=== PATIENT | female | born 1960 | race Caucasian/White ===

== ENCOUNTER 2021-06-01 09:37 | Inpatient (IN) | payer OTHER ==
[~2021-06-01] VITALS: Ht 165.1 cm; Wt 45.8 kg
[2021-06-01] MEDS ORDERED: MORPHINE SULFATE INJ 4 MG/ML DISP.SYRIN ONE (09:59)
[2021-06-01] MEDS ORDERED: MORPHINE SULFATE INJ 2 MG/ML DISP.SYRIN IV ONE (10:00)
[2021-06-01] MEDS ORDERED: MELO15TA13 PO (10:01)
[2021-06-01] MEDS ORDERED: ALPR0.5T PO (10:01)
[2021-06-01] MEDS ORDERED: ARIP2TAB3 PO (10:01)
[2021-06-01] MEDS ORDERED: MAGN84TA PO (10:01)
[2021-06-01] MEDS ORDERED: CITA40TA22 PO (10:01)
[2021-06-01] MEDS ORDERED: TOPI200T PO (10:01)
[2021-06-01] MEDS ORDERED: LEVE500T9 PO (10:01)
[2021-06-01] MEDS ORDERED: ASPI-1169 PO (10:01)
--- NOTE | 2021-06-01 10:06 | NUR ---
RADIOLOGY CALLED FOR CT CHEST AND ABDOMEN.
--- NOTE | 2021-06-01 10:12 | NUR ---
60 years old female presents to er with right shoulder pain/arm swelling, poor historian, rib ecchymotic.
[2021-06-01] MEDS ORDERED: CT SWABBABLE VALVE TRANS SET 1 EA INFUS.SET MC ONE (10:14)
[2021-06-01] MEDS ORDERED: IOHEXOL-300 100 ML VIAL IV ONE (10:14)
[2021-06-01] MEDS ORDERED: OLANZAPINE 10 MG VIAL IM ONE ×2 (10:14→10:30)
[2021-06-01] MEDS ORDERED: IV NS 0.9% 250 ML IV ONE (10:14)
[2021-06-01 10:20] LABS: BASOPHILS % (AUTO) 0.5 % (0.0-2.0); HEMATOCRIT 35 % (33-45); HEMOGLOBIN 11.8 g/dL (11.5-14.8); LYMPHOCYTES % (AUTO) 27.6 % (20.0-44.0); MEAN CORPUSCULAR HGB CONC 33 g/dl (31.0-36.0); MEAN CORPUSCULAR VOLUME 98 fL (82-100); MONOCYTES # (AUTO) 0.8 K/uL (0.1-1.30); MONOCYTES % (AUTO) 11.6 % (2.0-12.0); NEUTROPHILS # (AUTO) 4.2 K/uL (1.8-8.9); NEUTROPHILS % (AUTO) 57.3 % (43.0-81.0); PLATELET COUNT (AUTO) 315 K/uL (150-450); RED BLOOD CELL COUNT(AUTO) 3.63 MIL/uL (4.0-5.2); WHITE BLOOD COUNT (AUTO) 7.3 K/uL (4.3-11.0)
[2021-06-01 11:09] LABS: ALANINE AMINOTRANSFERASE 20 U/L (12-78); ALBUMIN 3.2 g/dL (3.4-5.0); ALKALINE PHOSPHATASE 100 U/L (46-116); ASPARTATE AMINOTRANSFERASE 18 U/L (15-37); BILIRUBIN,DIRECT 0.2 mg/dL (0.0-0.2); BILIRUBIN,TOTAL 0.8 mg/dL (0.2-1.0); CALCIUM, SERUM 10.5 mg/dL (8.5-10.1); CARBON DIOXIDE 25 mmol/L (21-32); CHLORIDE 107 mmol/L (98-107); CREATININE 0.8 mg/dL (0.6-1.3); GLUCOSE 105 mg/dL (74-106); SODIUM SERUM 141 mmol/L (136-145); TOTAL PROTEIN, SERUM 6.7 g/dL (6.4-8.2)
--- NOTE | 2021-06-01 12:11 | NUR ---
patient resting no acute distress, vital stable, safety maintained.
[2021-06-01 12:44] LABS: BILIRUBIN,URINE NEGATIVE (NEGATIVE); LEUKOCYTE ESTERASE ,URINE SMALL (NEGATIVE); NITRITE, URINE NEGATIVE (NEGATIVE); PH,URINE 7.5 (5.0-8.0); PROTEIN,URINE NEGATIVE (NEGATIVE); UGLUCOSE NEGATIVE (NEGATIVE); UROBILINOGEN,URINE 0.2 EU/dL (0.2)
[2021-06-01 12:52] LABS: COLOR,URINE DARK YELLOW (YELLOW)
[2021-06-01 13:20] LABS: BACTERIA,URINE Few /HPF (None Seen); SQUAMOUS EPITHELIAL CELL,UR Few /HPF (None Seen); URINE AMORPHOUS PHOSPHATES Moderate /HPF (None Seen)
[2021-06-01 14:20] LABS: UREA NITROGEN, BLOOD 31 mg/dL (7-18)
[2021-06-01] MEDS ORDERED: Z GUARD REMEDY 2 OZ OINT TP PRN (14:30)
[2021-06-01] MEDS ORDERED: MAG HYDROX/AL HYDROX/SIMETH 30 ML UDC PO PRN (14:30)
[2021-06-01] MEDS ORDERED: MAGNESIUM HYDROXIDE 30 ML UDC PO PRN (14:30)
[2021-06-01] MEDS ORDERED: ACETAMINOPHEN 325 MG TABLET PO PRN (14:30)
[2021-06-01] MEDS ORDERED: ONDANSETRON HCL/PF 4 MG/2 ML VIAL IVP PRN (14:30)
--- NOTE | 2021-06-01 14:40 | NUR ---
RN ADMITTING NOTES PT TRANSPORTED TO UNIT BY [facility] AT THIS TIME. RECEIVED REPORT FROM PAO YANG @ ER. PT GARBLES AND IS AUTISTIC. NO SOB NOTED, NO S/O OF ANY ACUTE DISTRESS NOTED, NO S/O PAIN OR FACIAL GRIMACE AT THIS TIME. RIGHT LATERAL SIDE BRUISING. SKIN IS WARM TO TOUCH, ACTIVE BOWEL SOUNDS AUSCULTATED THROUGHOUT, LUNGS ARE CLEAR TO AUSCULTATION. PULSES PRESENT BILATERALLY, CAPILLARY REFILL <3SECONDS. IV ACCESS NOTED IN LAC G#20, INTACT, PATENT AND FLUSHING WELL. BELONGINGS ACCOUNTED FOR AND SIGNED BY TWO NURSES, DUE TO PATIENT UNABLE TO SIGN. ASPIRATION AND SAFETY PRECAUTIONS IN PLACE AND MAINTAINED AT ALL TIMES. BED IN LOWEST LOCKED POSITION, HOB ELEVATED, SIDE RAILS UP X2, CALL LIGHT AND TABLE WITHIN REACH. WILL CONTINUE TO MONITOR
[2021-06-01] MEDS ORDERED: MAGNESIUM PO SCH (17:00)
[2021-06-01] MEDS: IV NS 0.9% 1,000 ML IV PRN (17:54)
--- NOTE | 2021-06-01 18:25 | NUR ---
ETHAN ([phone]), PT'S LEGAL CONSERVATORSHIP AND BILL ([phone]), PT'S BROTHER BOTH ELECTED FOR DNR, NIC CHARGE NURSE AND DR CHEATHAM MADE AWARE. RECEIVED ORDERS FROM DR CHEATHAM TO INPUT CODE STATUS TO DNR. OLIVER CHARGE NURSE AND NURSE CO-SIGN STATUS. WILL CONTINUE WITH PLAN OF CARE
--- NOTE | 2021-06-01 19:03 | NUR ---
RN CLOSING NOTES RECEIVED PT AWAKE IN BED, PT REMAINED STABLE THROUGHOUT SHIFT. ALL PATIENT CARE, NEEDS AND MEDICATIONS ADMINISTERED ANTICIPATED PER ORDER. KEPT CLEAN AND DRY. SAFETY PRECAUTIONS IN PLACE AND MAINTAINED AT ALL TIMES. BED IN LOWEST LOCKED POSITION, HOB ELEVATED, SIDE RAILS UP X2, CALL LIGHT AND TABLE WITHIN REACH. WILL ENDORSE TO LABORATORY MECHANIC HELPER NURSE FOR TRISH
[2021-06-01] MEDS: ARIPIPRAZOLE 2 MG TABLET PO SCH (19:10)
[2021-06-01 19:58] LABS: CREATINE KINASE, TOTAL 209 U/L (26-192)
[2021-06-01 20:00] VITALS: BP 125/72
--- NOTE | 2021-06-01 20:10 | NUR ---
MS RN Opening Notes Patient was last seen awake resting in bed. Patient's on room air with no respiratory distress needed. Patient has an IV access on on her LAC gauge #20 which is intact, patent, and flushing well. Patient's in no acute distress at this time. Safety measures in place: Bed locked, bed alarm on, side rails up x3, and call light within reach. Will continue to monitor the patient.
[2021-06-01] MEDS ORDERED: ALPRAZOLAM 0.5 MG TABLET PO PRN (21:00)
[2021-06-01] MEDS: TOPIRAMATE 100 MG TABLET PO SCH (21:35)
[2021-06-01] MEDS: LEVETIRACETAM (250 MG) 250 MG TABLET PO SCH (21:35)
[2021-06-01] MEDS: CITALOPRAM HYDROBROMIDE 20 MG TABLET PO SCH (21:38)
[2021-06-02 06:19] LABS: BASOPHILS % (AUTO) 0.4 % (0.0-2.0); EOSINOPHILS % (AUTO) 2.8 % (0.0-6.0); HEMATOCRIT 37 % (33-45); HEMOGLOBIN 12.1 g/dL (11.5-14.8); LYMPHOCYTES # (AUTO) 1.4 K/uL (0.8-4.8); LYMPHOCYTES % (AUTO) 16.5 % (20.0-44.0); MEAN CORPUSCULAR HGB CONC 33 g/dl (31.0-36.0); MEAN CORPUSCULAR VOLUME 99 fL (82-100); MONOCYTES # (AUTO) 0.7 K/uL (0.1-1.30); MONOCYTES % (AUTO) 8.2 % (2.0-12.0); NEUTROPHILS # (AUTO) 5.9 K/uL (1.8-8.9); NEUTROPHILS % (AUTO) 72.1 % (43.0-81.0); PLATELET COUNT (AUTO) 280 K/uL (150-450); WHITE BLOOD COUNT (AUTO) 8.2 K/uL (4.3-11.0)
[2021-06-02 07:22] LABS: MAGNESIUM 1.3 mg/dL (1.8-2.4); PHOSPHORUS 2.3 mg/dL (2.5-4.9)
[2021-06-02 08:00] VITALS: BP 122/79
--- NOTE | 2021-06-02 08:45 | NUR ---
m/s seafood farmer: md visit seen by dr. serra at this time with no new order. per md pt doesn't need ortho consult.
[2021-06-02] MEDS: ASPIRIN 81 MG TAB.CHEW PO SCH (08:53)
[2021-06-02] MEDS: MELOXICAM 7.5 MG TABLET PO SCH (08:53)
[2021-06-02] MEDS: LEVETIRACETAM (250 MG) 250 MG TABLET PO SCH ×2 (08:53→21:23)
[2021-06-02] MEDS: TOPIRAMATE 100 MG TABLET PO SCH ×2 (08:53→21:23)
[2021-06-02] MEDS: ARIPIPRAZOLE 2 MG TABLET PO SCH (08:53)
[2021-06-02] MEDS ORDERED: Magnesium 1GM/D5W 100ML PREMIX 100 ML IV SCH ×2 (09:00→15:00)
--- NOTE | 2021-06-02 09:00 | NUR ---
noted with iv meds ordered, pharmacist notified, spoke to emmie and informed him that pt needs a line. pt has no iv at this time due to hard stick. pt for midline insertion, awaiting for picc line nurse.
--- NOTE | 2021-06-02 09:15 | NUR ---
SS consult received over the weekend. SW will follow up at a later time.
--- NOTE | 2021-06-02 09:35 | NUR ---
WOUND CARE CONSULT: PT PRESENTS WITH AREAS OF DISCOLORATION TO BODY, PRESENT ON ADMISSION. RECOMMENDATIONS MADE FOR SKIN PROTECTION. DISCUSSED WITH NURSING STAFF. IN AGREEMENT WITH PLAN OF CARE. Addendum: 06/02/21 at 0937 by ERAN RICH WNDNU PT IS ON [facility] AIR[facility] BED.
--- NOTE | 2021-06-02 10:20 | NUR ---
m/s coil taper: notes PICC RN WESLEY INSERTED THE MIDLINE TO LEFT UPPER ARM, GAUZE #18, MADISYN. WELL. YARY HAND MITTENS IN PLACE, RELEASED AND REPOSITIONED FOR CIRCULATION NEEDED. REALITY ORIENTATION PROVIDED PRN. WILL CONTINUE TO MONITOR.
[2021-06-02] MEDS: POTASSIUM PHOSPHATE MM 7.5 MMOL in IV NS 0.9% 100 ML IV SCH ×2 (10:32→13:37)
--- NOTE | 2021-06-02 10:40 | NUR ---
o.t. eval done and right sling applied at this time. will continue to monitor.
[2021-06-02] MEDS: APIXABAN 5 MG TABLET PO SCH ×2 (10:45→16:41)
--- NOTE | 2021-06-02 11:00 | NUR ---
m/s garment sewer hand: notes shaun (brother, dpoa) visiting at this time.
[2021-06-02] MEDS: ENSURE ENLIVE 237 ML LIQUID (VANILLA) PO SCH ×2 (11:30→17:00)
--- NOTE | 2021-06-02 13:30 | NUR ---
m/s vest presser: notes p.t. eval and tx done at bedside at this time. see p.t. notes.
[2021-06-02 13:45] LABS: THYROID STIMULATING HORMONE 1.791 uIU/mL (0.358-3.74)
--- NOTE | 2021-06-02 14:50 | NUR ---
Senior Manager Mergers & Acquisitions note: director volunteer services requested per MD order. Patient is a 60-year-old, female. SW was unable to interview the patient. Per chart, patient is unable provide history due to ongoing Autism and mental impairment. CONTACT INTERACTION WITH [facility], LOCKSTITCH COLLAR SETTER, PADMINI EDOUARD: 1030: SW met with patient's telephonic nurse case manager, Padmini Bennettgris, in the med-surg unit. Padmini stated that she is a telephonic nurse case manager from [facility] ([address] [place] [id number]; ). Padmini provided MANNY with information for her counseling program leader, Evangelina, , for more information. 7575: MANNY contacted patient's conservator/brother, Jeff Hooperalyjustin, and left a voicemail. CONTACT INTERACTION WITH [facility], COMMUNITY ORGANIZATION WORKER, EVANGELINA: 1230:Evangelina stated that the patient is currently living at a private residence at [address] [place], [place] [id number]. Patient has been living at this residence for the last 3 years. Patient's current residence has no elevator and patient takes the stairs with her caregiver. Patient has become increasingly less ambulatory and sometimes uses a wheelchair. Evangelina stated that the patient has 24-hour caregivers through [facility] which started in mid-April. Evangelina reported that the patient is non-verbal. Patient is ambulatory but requires assistance with going to the toilet, showering, and meals. Patient is ambulatory but "drops to the ground when she is upset." Evangelina reported a history of behavioral concerns at the adult day program which Evangelina reported as "throwing herself, scratching, hitting others." On 05/14/21, patient was on her way to the [facility] with her caregiver but had "dropped" out of the hands of her caregiver. [employer] [facility] reported the fall to the [facility]. Patient was taken to the adult day program as there were no signs or symptoms of injury. Patient's conservatorJeff was notified. Patient's PCP was contacted for consultation and advised patient's conservatorJeff that the patient should obtain an x-ray. On 05/26/21, patient went to urgent care for an x-ray due bruising/swelling on the patient's right shoulder. A CT scan was done instead of an x-ray and patient was found to have a right shoulder fracture. Patient was brought in 06/01/21 after patient's caregiver called patient's previous telephonic nurse case manager, Rick, with complaints that the patient's right shoulder appeared bruised and swollen. manager civilRick instructed the caregiver to take the patient to the emergency department. Patient's conservator Jeff Chandrakantjustin was notified. Evangelina stated that the patient will return to her prior living arrangement at the time of discharge. Patient will be provided transportation by one of her caregivers. CONTACT INTERACTION WITH PATIENT'S CONSERVATOR/BROTHERJEFF BHANUALYJUSTIN: 1915: MANNY received a call from patient's conservator/brother, Jeff Tate, . Jeff confirmed the information that was provided by counseling program leader, Evangelina. Jeff stated that after the patient's fall, patient's PCP was consulted and Jeff was told that it was a non-emergency and was instructed to arrange an ortho consult. Jeff was told by the patient's PCP that the bruising could be due to Aspirin. Jeff confirmed that the patient will return to her prior living arrangement and will be moving to another private residence, which has an elevator, this Wednesday. Jeff stated that the patient's caregiver would provide transportation at the time of discharge. Jeff requested to be contacted at the time of discharge. PLAN: Patient will return to her prior living arrangement at home at the time of discharge and will be provided transportation by the patient's caregiver. staffing specialist to contact patient's conservator/brother, Jeff Tate, , at the time discharge. No further SS intervention at this time, however, MANNY will remain available as needed.
[2021-06-02 16:00] VITALS: BP 146/74
[2021-06-02] MEDS: Magnesium 1GM/D5W 100ML PREMIX 100 ML IV SCH ×4 (16:44→20:51)
--- NOTE | 2021-06-02 18:45 | NUR ---
m/s cutting and splicing supervisor: notes 3rd bag of magnesium sulfate ivpb infusing. no distress noted. needs attended. call light within reach. will continue to monitor.
--- NOTE | 2021-06-02 19:10 | NUR ---
m/s med spec: notes report given to saadia (catarino) for continuity of care.
--- NOTE | 2021-06-02 19:56 | NUR ---
MS RN OPENING NOTE PATIENT A/OX1; ABLE TO MAKE NEEDS KNOWN. TOLERATING ROOM AIR WELL WITH NO SOB. NO S/SX OF PAIN OR DISCOMFORT AT THIS TIME. MIDLINE #18G NS @ 75ML/HR + MG REPLACEMENT; PATENT AND INTACT. SAFETY MEASURES IN PLACE: BED IN LOWEST LOCKED POSITION, SIDE RAILS UPX2, CALL LIGHT WITHIN EASY REACH, BED ALARM ON. PATIENT IN STABLE CONDITION, WILL CONTINUE PLAN OF CARE.
[2021-06-02 20:00] VITALS: BP 134/87
[2021-06-02] MEDS: CITALOPRAM HYDROBROMIDE 20 MG TABLET PO SCH (21:23)
[2021-06-03] MEDS: IV NS 0.9% 1,000 ML IV PRN (04:57)
--- NOTE | 2021-06-03 07:40 | NUR ---
m/s negative turner apprentice: md visit seen and examined by dr. corbin with lab orders. orders acknowledged. pt for d'c planning per pmd. will continue to monitor.
[2021-06-03 08:00] VITALS: BP 148/86
[2021-06-03] MEDS: ENSURE ENLIVE 237 ML LIQUID (VANILLA) PO SCH (08:24)
[2021-06-03 08:46] LABS: BASOPHILS % (AUTO) 0.3 % (0.0-2.0); EOSINOPHILS % (AUTO) 3.4 % (0.0-6.0); HEMATOCRIT 36 % (33-45); HEMOGLOBIN 11.9 g/dL (11.5-14.8); LYMPHOCYTES # (AUTO) 1.6 K/uL (0.8-4.8); LYMPHOCYTES % (AUTO) 21.6 % (20.0-44.0); MEAN CORPUSCULAR HGB CONC 33 g/dl (31.0-36.0); MEAN CORPUSCULAR VOLUME 98 fL (82-100); MONOCYTES # (AUTO) 0.7 K/uL (0.1-1.30); MONOCYTES % (AUTO) 9.7 % (2.0-12.0); NEUTROPHILS # (AUTO) 4.9 K/uL (1.8-8.9); PLATELET COUNT (AUTO) 315 K/uL (150-450); RED BLOOD CELL COUNT(AUTO) 3.69 MIL/uL (4.0-5.2); WHITE BLOOD COUNT (AUTO) 7.6 K/uL (4.3-11.0)
[2021-06-03] MEDS: LEVETIRACETAM (250 MG) 250 MG TABLET PO SCH (09:14)
[2021-06-03] MEDS: MELOXICAM 7.5 MG TABLET PO SCH (09:14)
[2021-06-03] MEDS: ASPIRIN 81 MG TAB.CHEW PO SCH (09:14)
[2021-06-03] MEDS: ARIPIPRAZOLE 2 MG TABLET PO SCH (09:15)
[2021-06-03] MEDS: APIXABAN 5 MG TABLET PO SCH (09:15)
[2021-06-03] MEDS: TOPIRAMATE 100 MG TABLET PO SCH (09:15)
--- NOTE | 2021-06-03 10:00 | NUR ---
m/s extracorporeal technician: laura oconnell (pt's case management) visiting at this time.
--- NOTE | 2021-06-03 10:20 | NUR ---
m/s printing mechanist: notes re draw chemistry at this time by manufacturing laborer. kourtney (felipe) still at bedside.
--- NOTE | 2021-06-03 13:00 | NUR ---
m/s etl architect: notes f/u made to lab re: chem not resulted yet, spoke to jahaira (tech) and will let them know.
[2021-06-03 13:37] LABS: CREATININE 0.7 mg/dL (0.6-1.3); MAGNESIUM 2.5 mg/dL (1.8-2.4); PHOSPHORUS 2.6 mg/dL (2.5-4.9); POTASSIUM 3.7 mmol/L (3.5-5.1)
--- NOTE | 2021-06-03 14:00 | NUR ---
m/s tower hand: notes dr. corbin notified re: chem results and plan to d'c home with home health p.t. shaun (brother) notified and made aware. denice (felipe) aware and will make arrangement for transportation. odalis hands mittens removed.
[2021-06-03] MEDS ORDERED: APIX5TAB PO (14:53)
[2021-06-03] MEDS ORDERED: APIX2.5T PO (14:53)
[2021-06-03 15:38] VITALS: BP 148/75
--- NOTE | 2021-06-03 16:00 | NUR ---
m/s preparation department supervisor: notes shaun (brother) here and informed him that pt will get home health physical therapy treatment at home and case management to make arrangement. inform him that i will get the discharge papers ready for him to sign, but left without notice. pt unable to sign discharge instructions due to cognitive impairment. 2 license staff signed all d'c papers. midline removed by rn, jose miguel. well. no bleeding noted. wheelchair turkey picker is here and will be back in a few minutes.
--- NOTE | 2021-06-03 16:25 | NUR ---
m/s quality audit representative: notes wheelchair pick here with 2 crew and shaun (brother). verbal instructions given to son with prescriptions and verbalized understanding. belongings given to brother.
--- NOTE | 2021-06-03 16:35 | NUR ---
m/s bag cutter: notes discharge home in stable condition via wheelchair accompanied by 2 crew.
== END 2021-06-03 16:35 | disposition home health service (06) | DRG 342 ==
LOC: ER 09:39 → TELE 14:19 → MED 14:47
PROVIDERS: ADMIT Internal Medicine; ATTEND Family Medicine
PROC: 05HC33Z Insertion of Infusion Device into Left Basilic Vein, Percutaneous Approach (ICD-10-PCS; principal; 2021-06-02)
DX: S42.291A Other displaced fracture of upper end of right humerus, initial encounter for closed fracture (principal); N17.0 Acute kidney failure with tubular necrosis; I82.621 Acute embolism and thrombosis of deep veins of right upper extremity; F79 Unspecified intellectual disabilities; F84.0 Autistic disorder; X58.XXXA Exposure to other specified factors, initial encounter; Y92.009 Unspecified place in unspecified non-institutional (private) residence as the place of occurrence of the external cause; G40.909 Epilepsy, unspecified, not intractable, without status epilepticus; Z20.822 Contact with and (suspected) exposure to COVID-19; F32.9 Major depressive disorder, single episode, unspecified; F29 Unspecified psychosis not due to a substance or known physiological condition; Z79.82 Long term (current) use of aspirin; Z79.899 Other long term (current) drug therapy; T76.91XA Unspecified adult maltreatment, suspected, initial encounter; E83.42 Hypomagnesemia; E83.39 Other disorders of phosphorus metabolism; F41.9 Anxiety disorder, unspecified; I82.A11 Acute embolism and thrombosis of right axillary vein; I82.890 Acute embolism and thrombosis of other specified veins; N20.0 Calculus of kidney
CPT/HCPCS: 36415; 70450-TC; 71045-TC; 71260-TC; 72125-TC; 73060-TC; 80048-TC; 80061-TC; 80076-TC; 81001; 82550-TC; 83735-TC; 83970; 84100-TC; 84443-TC; 84484-TC; 85025-TC; 85730-TC; 86850-TC; 87081-TC; 87086-TC; 93971-TC; 97112-TC; 97530-TC; A4565; C9803; G0378; J2270; J3475; J3490; J7030; J7050; Q9967

== ENCOUNTER 2021-06-05 09:52 | Emergency (ER) | payer OTHER ==
[~2021-06-05] VITALS: Ht 152.4 cm; Wt 41.3 kg
[~2021-06-05 09:52] MED LIST: ALPR0.5T PO; APIX2.5T PO; APIX5TAB PO; ARIP2TAB3 PO; ASPI-1169 PO; CITA40TA22 PO; LEVE500T9 PO; MAGN84TA PO; MELO15TA13 PO; TOPI200T PO
--- NOTE | 2021-06-05 09:56 | NUR ---
TO ER BED 4, [id number] FOR RUE PAIN AND SWELLING NOTED TODAY, ATTACHED TO MONITOR, CHANGED TO MD MICHEAL AT BEDSIDE
--- NOTE | 2021-06-05 10:00 | NUR ---
SALINE LOCK ESTABLISHED
--- NOTE | 2021-06-05 10:19 | NUR ---
LAB AT BEDSIDE FOR BLOOD DRAW, BROTHER WITH PT
[2021-06-05 10:26] LABS: BASOPHILS % (AUTO) 0.4 % (0.0-2.0); HEMATOCRIT 35 % (33-45); HEMOGLOBIN 11.5 g/dL (11.5-14.8); LYMPHOCYTES # (AUTO) 1.6 K/uL (0.8-4.8); MEAN CORPUSCULAR HGB CONC 33 g/dl (31.0-36.0); MEAN CORPUSCULAR VOLUME 99 fL (82-100); MONOCYTES # (AUTO) 0.6 K/uL (0.1-1.30); MONOCYTES % (AUTO) 8.1 % (2.0-12.0); NEUTROPHILS # (AUTO) 5.4 K/uL (1.8-8.9); NEUTROPHILS % (AUTO) 67.5 % (43.0-81.0); PLATELET COUNT (AUTO) 277 K/uL (150-450); RED BLOOD CELL COUNT(AUTO) 3.53 MIL/uL (4.0-5.2)
--- NOTE | 2021-06-05 10:29 | NUR ---
URINE COLLECTED AND SENT TO LAB
--- NOTE | 2021-06-05 10:30 | NUR ---
CONSUMER INSIGHTS SPECIALIST AT BEDSIDE
[2021-06-05 10:33] LABS: CREATININE 0.8 mg/dL (0.6-1.3); POTASSIUM 4.4 mmol/L (3.5-5.1)
[2021-06-05] MEDS ORDERED: MORPHINE SULFATE INJ 2 MG/ML DISP.SYRIN ONE ×2 (10:36→12:33)
[2021-06-05 10:43] LABS: CALCIUM, SERUM 10.1 mg/dL (8.5-10.1)
[2021-06-05] MEDS: MORPHINE SULFATE INJ 2 MG/ML DISP.SYRIN IV ONE ×2 (10:54→13:28)
--- NOTE | 2021-06-05 10:55 | NUR ---
XRAY AT BEDSIDE
[2021-06-05 10:58] LABS: BILIRUBIN,URINE Negative (NEGATIVE); COLOR,URINE YELLOW (YELLOW); LEUKOCYTE ESTERASE ,URINE Trace (NEGATIVE); NITRITE, URINE Negative (NEGATIVE); PH,URINE 8.5 (5.0-8.0); PROTEIN,URINE Negative (NEGATIVE); UGLUCOSE Negative (NEGATIVE); UROBILINOGEN,URINE 0.2 EU/dL (0.2)
[2021-06-05 11:05] LABS: BACTERIA,URINE Few /HPF (None Seen); SQUAMOUS EPITHELIAL CELL,UR Few /HPF (None Seen)
--- NOTE | 2021-06-05 11:51 | NUR ---
SPOKE TO BROTHER ABOUT LAB AND XRAY RESULTS, BROTHER STANDING BY IN THE WAITING ROOM BROTHER # [phone]
[2021-06-05] MEDS ORDERED: IOHEXOL-350 100 ML VIAL IV ONE (12:16)
[2021-06-05] MEDS ORDERED: CT SWABBABLE VALVE TRANS SET 1 EA INFUS.SET MC ONE (12:17)
[2021-06-05] MEDS ORDERED: IV NS 0.9% 250 ML IV ONE (12:17)
--- NOTE | 2021-06-05 13:10 | NUR ---
BACK FROM CT
--- NOTE | 2021-06-05 14:18 | NUR ---
PT RESTING COMFORTABLY IN BED, BROTHER LEFT AND ADVISED TO INFORM HIM OF ANY PLAN RE PT
--- NOTE | 2021-06-05 15:14 | NUR ---
DOCTOR TALKED TO PT BROTHER
--- NOTE | 2021-06-05 15:29 | NUR ---
CALLED CALL THE CAR FOR TRANSPORT TO [facility]. NO ETA GIVEN BUT WAS GIVEN REFERENCE NUMBER #[id number].
--- NOTE | 2021-06-05 15:42 | NUR ---
[facility] ETA 1700
[2021-06-05 17:18] VITALS: BP 149/80
== END 2021-06-05 18:00 | disposition home or self-care (01) ==
LOC: ER 09:54
DX: S42.251A Displaced fracture of greater tuberosity of right humerus, initial encounter for closed fracture (principal); R22.31 Localized swelling, mass and lump, right upper limb; G40.909 Epilepsy, unspecified, not intractable, without status epilepticus; Z88.1 Allergy status to other antibiotic agents; Z88.8 Allergy status to other drugs, medicaments and biological substances; Z79.899 Other long term (current) drug therapy; Z79.82 Long term (current) use of aspirin; W19.XXXA Unspecified fall, initial encounter; Y93.89 Activity, other specified; Y92.89 Other specified places as the place of occurrence of the external cause; Y99.8 Other external cause status
CPT/HCPCS: 36415; 71045; 73060; 73090; 73201; 80048; 81001; 85025; 85610; 85730; 93971; 96374; 96376; 99285; J2270 ×2; J7050; Q9967

== ENCOUNTER 2021-06-29 13:56 | Inpatient (IN) | payer OTHER ==
[~2021-06-29] VITALS: Ht 147.3 cm; Wt 44.9 kg
[2021-06-29 15:13] LABS: BILIRUBIN,URINE SMALL (NEGATIVE); COLOR,URINE YELLOW (YELLOW); LEUKOCYTE ESTERASE ,URINE Small (NEGATIVE); NITRITE, URINE Negative (NEGATIVE); PH,URINE 8.5 (5.0-8.0); PROTEIN,URINE >=300 mg/dl (NEGATIVE); UGLUCOSE Negative (NEGATIVE); UROBILINOGEN,URINE 0.2 EU/dL (0.2)
[2021-06-29 15:22] LABS: BACTERIA,URINE Few /HPF (None Seen); SQUAMOUS EPITHELIAL CELL,UR Few /HPF (None Seen); URINE AMORPHOUS PHOSPHATES Moderate /HPF (None Seen)
[2021-06-29 16:47] LABS: BASOPHILS # (AUTO) 0.1 K/uL (0.0-0.2); BASOPHILS % (AUTO) 0.7 % (0.0-2.0); EOSINOPHILS % (AUTO) 2.4 % (0.0-6.0); HEMATOCRIT 42 % (33-45); HEMOGLOBIN 13.6 g/dL (11.5-14.8); LYMPHOCYTES % (AUTO) 20.9 % (20.0-44.0); MEAN CORPUSCULAR HGB CONC 32 g/dl (31.0-36.0); MEAN CORPUSCULAR VOLUME 97 fL (82-100); MONOCYTES # (AUTO) 1.1 K/uL (0.1-1.30); MONOCYTES % (AUTO) 11.1 % (2.0-12.0); NEUTROPHILS # (AUTO) 6.2 K/uL (1.8-8.9); NEUTROPHILS % (AUTO) 64.9 % (43.0-81.0); PLATELET COUNT (AUTO) 328 K/uL (150-450); RED BLOOD CELL COUNT(AUTO) 4.32 MIL/uL (4.0-5.2); WHITE BLOOD COUNT (AUTO) 9.6 K/uL (4.3-11.0)
[2021-06-29 16:58] LABS: CALCIUM, SERUM 10.9 mg/dL (8.5-10.1)
[2021-06-29] MEDS ORDERED: IV NS 0.9% 1,000 ML BAG IV ONE (18:00)
[2021-06-29] MEDS ORDERED: CIPROFLOXACIN HCL 250 MG TABLET PO ONE (18:00)
[2021-06-29] MEDS ORDERED: CIPROFLOXACIN HCL 250 MG TABLET ONE (18:12)
[2021-06-29] MEDS ORDERED: ERGO500093 PO (18:39)
[2021-06-29] MEDS ORDERED: OLAN2.5T3 PO (18:39)
[2021-06-29] MEDS ORDERED: OLAN5TAB3 PO (18:39)
[2021-06-29] MEDS ORDERED: OLANZAPINE 5 MG TABLET PO ONE (22:00)
[2021-06-29] MEDS ORDERED: OLANZAPINE 5 MG TABLET ONE (22:23)
[2021-06-29] MEDS ORDERED: ZOLPIDEM TARTRATE 5 MG TABLET PO PRN (23:30)
[2021-06-29] MEDS ORDERED: IV NS 0.9% 1,000 ML IV PRN (23:30)
[2021-06-29] MEDS ORDERED: MAGNESIUM HYDROXIDE 30 ML UDC PO PRN (23:30)
[2021-06-29] MEDS ORDERED: ONDANSETRON HCL/PF 4 MG/2 ML VIAL IVP PRN (23:30)
[2021-06-29] MEDS ORDERED: MAG HYDROX/AL HYDROX/SIMETH 30 ML UDC PO PRN (23:30)
[2021-06-29] MEDS ORDERED: Z GUARD REMEDY 2 OZ OINT TP PRN (23:30)
[2021-06-29] MEDS ORDERED: ACETAMINOPHEN 325 MG TABLET PO PRN (23:30)
[2021-06-30 05:02] LABS: BASOPHILS # (AUTO) 0.1 K/uL (0.0-0.2); BASOPHILS % (AUTO) 0.7 % (0.0-2.0); EOSINOPHILS % (AUTO) 1.8 % (0.0-6.0); HEMATOCRIT 42 % (33-45); HEMOGLOBIN 13.7 g/dL (11.5-14.8); LYMPHOCYTES # (AUTO) 1.8 K/uL (0.8-4.8); LYMPHOCYTES % (AUTO) 21.3 % (20.0-44.0); MEAN CORPUSCULAR HGB CONC 33 g/dl (31.0-36.0); MEAN CORPUSCULAR VOLUME 97 fL (82-100); MONOCYTES # (AUTO) 0.8 K/uL (0.1-1.30); MONOCYTES % (AUTO) 10.2 % (2.0-12.0); NEUTROPHILS # (AUTO) 5.5 K/uL (1.8-8.9); PLATELET COUNT (AUTO) 319 K/uL (150-450); WHITE BLOOD COUNT (AUTO) 8.3 K/uL (4.3-11.0)
[2021-06-30 05:27] LABS: CALCIUM, SERUM 10.7 mg/dL (8.5-10.1); MAGNESIUM 1.3 mg/dL (1.8-2.4); PHOSPHORUS 2.7 mg/dL (2.5-4.9); POTASSIUM 4.7 mmol/L (3.5-5.1)
[2021-06-30 05:38] LABS: THYROID STIMULATING HORMONE 1.419 uIU/mL (0.358-3.74)
[2021-06-30] MEDS ORDERED: CIPROFLOXACIN IV RTU 200 ML IV ONE (06:20)
[2021-06-30] MEDS: CIPROFLOXACIN IV RTU 400 MG in PREMIX 1 EA IV SCH ×2 (06:30→17:13)
[2021-06-30 08:00] VITALS: BP 173/80
[2021-06-30] MEDS ORDERED: HOME MED MISCELLANEOUS XX SCH (08:00)
[2021-06-30] MEDS ORDERED: OLANZAPINE 5 MG TABLET PO PRN (08:00)
[2021-06-30] MEDS ORDERED: IV D5/0.45 NACL 1,000 ML IV PRN (08:00)
[2021-06-30] MEDS: ASPIRIN 81 MG TAB.CHEW PO SCH (08:54)
[2021-06-30] MEDS: TOPIRAMATE 100 MG TABLET PO SCH ×2 (08:54→21:45)
[2021-06-30] MEDS: CITALOPRAM HYDROBROMIDE 20 MG TABLET PO SCH (08:55)
[2021-06-30] MEDS: LEVETIRACETAM (250 MG) 250 MG TABLET PO SCH ×2 (08:55→21:45)
[2021-06-30] MEDS ORDERED: AMLODIPINE BESYLATE 10 MG TABLET PO SCH (09:00)
[2021-06-30] MEDS: PANTOPRAZOLE 40 MG TABLET.DR PO SCH (09:00)
[2021-06-30] MEDS: Magnesium 1GM/D5W 100ML PREMIX 100 ML IV SCH ×4 (10:10→14:27)
[2021-06-30 12:00] VITALS: BP 137/72
[2021-06-30] MEDS: IV D5/0.45 NACL 1,000 ML IV SCH (12:21)
[2021-06-30 16:00] VITALS: BP 138/72
[2021-06-30 20:00] VITALS: BP 140/88
[2021-06-30] MEDS ORDERED: OLANZAPINE 2.5 MG TABLET PO SCH (22:00)
[2021-07-01] VITALS: BP 128/69
[2021-07-01] MEDS: IV D5/0.45 NACL 1,000 ML IV SCH ×2 (00:51→11:02)
[2021-07-01 04:00] VITALS: BP 120/80
[2021-07-01] MEDS: CIPROFLOXACIN IV RTU 400 MG in PREMIX 1 EA IV SCH (05:01)
[2021-07-01 07:11] LABS: ALBUMIN 2.7 g/dL (3.4-5.0); BILIRUBIN,TOTAL 0.3 mg/dL (0.2-1.0); CALCIUM, SERUM 9.8 mg/dL (8.5-10.1); CREATININE 0.8 mg/dL (0.6-1.3); MAGNESIUM 2.8 mg/dL (1.8-2.4); PHOSPHORUS 2.5 mg/dL (2.5-4.9); POTASSIUM 3.7 mmol/L (3.5-5.1); TOTAL PROTEIN, SERUM 6.7 g/dL (6.4-8.2)
[2021-07-01 08:00] VITALS: BP 106/67
[2021-07-01 08:05] LABS: BASOPHILS % (AUTO) 0.5 % (0.0-2.0); EOSINOPHILS % (AUTO) 4.4 % (0.0-6.0); HEMATOCRIT 40 % (33-45); LYMPHOCYTES # (AUTO) 1.5 K/uL (0.8-4.8); LYMPHOCYTES % (AUTO) 22.9 % (20.0-44.0); MEAN CORPUSCULAR HGB CONC 32 g/dl (31.0-36.0); MEAN CORPUSCULAR VOLUME 97 fL (82-100); MONOCYTES # (AUTO) 0.5 K/uL (0.1-1.30); MONOCYTES % (AUTO) 7.4 % (2.0-12.0); NEUTROPHILS # (AUTO) 4.3 K/uL (1.8-8.9); NEUTROPHILS % (AUTO) 64.8 % (43.0-81.0); PLATELET COUNT (AUTO) 278 K/uL (150-450); RED BLOOD CELL COUNT(AUTO) 4.16 MIL/uL (4.0-5.2); WHITE BLOOD COUNT (AUTO) 6.7 K/uL (4.3-11.0)
[2021-07-01 08:07] LABS: THYROID STIMULATING HORMONE 0.638 uIU/mL (0.358-3.74)
[2021-07-01] MEDS: CITALOPRAM HYDROBROMIDE 20 MG TABLET PO SCH (09:33)
[2021-07-01] MEDS: PANTOPRAZOLE 40 MG TABLET.DR PO SCH (09:33)
[2021-07-01] MEDS: TOPIRAMATE 100 MG TABLET PO SCH (09:33)
[2021-07-01] MEDS: LEVETIRACETAM (250 MG) 250 MG TABLET PO SCH (09:33)
[2021-07-01] MEDS: ASPIRIN 81 MG TAB.CHEW PO SCH (09:33)
[2021-07-01 12:00] VITALS: BP 140/59
[2021-07-01] MEDS ORDERED: SULF1TAB48 PO (15:58)
[2021-07-01 16:00] VITALS: BP 129/54
[2021-07-05] MEDS ORDERED: ERGOCALCIFEROL (VITAMIN D 2) 50,000 UNIT CAPSULE PO SCH (08:00)
== END 2021-07-01 16:54 | disposition home or self-care (01) | DRG 463 ==
LOC: ER 13:56 → TRANSITION 23:34 → TELE1 06-30 08:11
PROVIDERS: ADMIT Student in an Organized Health Care Education/Training Program; ATTEND Nurse Practitioner Acute Care
DX: N39.0 Urinary tract infection, site not specified (principal); G93.41 Metabolic encephalopathy; R64 Cachexia; E44.0 Moderate protein-calorie malnutrition; E86.0 Dehydration; E86.1 Hypovolemia; E86.9 Volume depletion, unspecified; E87.0 Hyperosmolality and hypernatremia; F84.0 Autistic disorder; Z20.822 Contact with and (suspected) exposure to COVID-19; G40.909 Epilepsy, unspecified, not intractable, without status epilepticus; Z88.1 Allergy status to other antibiotic agents; Z79.82 Long term (current) use of aspirin; Z79.899 Other long term (current) drug therapy; E83.52 Hypercalcemia; B96.89 Other specified bacterial agents as the cause of diseases classified elsewhere; G31.84 Mild cognitive impairment of uncertain or unknown etiology; Z68.1 Body mass index [BMI] 19.9 or less, adult; Z74.09 Other reduced mobility; E83.42 Hypomagnesemia; F32.9 Major depressive disorder, single episode, unspecified; R79.89 Other specified abnormal findings of blood chemistry
CPT/HCPCS: 36415; 80048-TC; 80053-TC; 80061-TC; 81001; 83735-TC; 83970; 84100-TC; 84443-TC; 84484-TC; 85025-TC; 87081-TC; 87086-TC; A4216; G0378; J0744; J2405; J3475; J3490; J7030; J7040; U0003

== ENCOUNTER 2021-08-16 17:02 | Inpatient (IN) | payer OTHER ==
[~2021-08-16] VITALS: Ht 144.8 cm; Wt 44.0 kg
[~2021-08-16 17:02] MED LIST changes: -ALPR0.5T PO; -APIX2.5T PO; -APIX5TAB PO; -ARIP2TAB3 PO; +ERGO500093 PO; +OLAN2.5T3 PO; +OLAN5TAB3 PO; +SULF1TAB48 PO
--- NOTE | 2021-08-16 17:20 | NUR ---
pt bibcaregiver, had seizure episode x 2 today, no oral trauma.no sob noted, breathing even and unlabored.stable on room air. kept comfortable in bed. safety measures in place.
[2021-08-16] MEDS ORDERED: IV NS 0.9% 500 ML BAG IV ONE (18:00)
--- NOTE | 2021-08-16 18:05 | NUR ---
PIV INSERTED IN RIGHT HAND G#20. GOOD BLOOD RETURN, INTACT, PATENT AND FLUSHING WELL
--- NOTE | 2021-08-16 18:17 | NUR ---
COVID SWAB DONE AND SENT TO LAB
[2021-08-16 18:43] LABS: CALCIUM, SERUM 11.1 mg/dL (8.5-10.1); CARBON DIOXIDE 26 mmol/L (21-32); CHLORIDE 109 mmol/L (98-107); CREATININE 0.9 mg/dL (0.6-1.3); GLUCOSE 90 mg/dL (74-106); POTASSIUM 4.1 mmol/L (3.5-5.1); SODIUM SERUM 144 mmol/L (136-145); UREA NITROGEN, BLOOD 24 mg/dL (7-18)
[2021-08-16 18:48] LABS: ALANINE AMINOTRANSFERASE 40 U/L (12-78); ALBUMIN 2.9 g/dL (3.4-5.0); ALKALINE PHOSPHATASE 100 U/L (46-116); ASPARTATE AMINOTRANSFERASE 35 U/L (15-37); BILIRUBIN,DIRECT 0.1 mg/dL (0.0-0.2); BILIRUBIN,TOTAL 0.2 mg/dL (0.2-1.0); TOTAL PROTEIN, SERUM 7.8 g/dL (6.4-8.2)
[2021-08-16 18:53] LABS: PHENYTOIN (DILANTIN) 0.6 ug/ml (10.0-20.0)
[2021-08-16 19:11] LABS: ALCOHOL, BLOOD < 3 mg/dL (0-0); PHENOBARBITAL 0 ug/ml (15-39)
[2021-08-16 19:12] LABS: VALPROIC ACID < 3 ug/mL (50-100)
[2021-08-16 19:35] LABS: BASOPHILS # (AUTO) 0.1 K/uL (0.0-0.2); BASOPHILS % (AUTO) 0.7 % (0.0-2.0); EOSINOPHILS % (AUTO) 2.1 % (0.0-6.0); HEMATOCRIT 38 % (33-45); HEMOGLOBIN 11.7 g/dL (11.5-14.8); LYMPHOCYTES # (AUTO) 2.9 K/uL (0.8-4.8); LYMPHOCYTES % (AUTO) 34.6 % (20.0-44.0); MEAN CORPUSCULAR HGB CONC 31 g/dl (31.0-36.0); MEAN CORPUSCULAR VOLUME 95 fL (82-100); MONOCYTES # (AUTO) 0.9 K/uL (0.1-1.30); MONOCYTES % (AUTO) 10.8 % (2.0-12.0); NEUTROPHILS # (AUTO) 4.4 K/uL (1.8-8.9); NEUTROPHILS % (AUTO) 51.8 % (43.0-81.0); PLATELET COUNT (AUTO) 282 K/uL (150-450); RED BLOOD CELL COUNT(AUTO) 3.96 MIL/uL (4.0-5.2); WHITE BLOOD COUNT (AUTO) 8.4 K/uL (4.3-11.0)
--- NOTE | 2021-08-16 20:26 | NUR ---
BED 327-1
[2021-08-16 21:00] VITALS: BP 164/102
[2021-08-16] MEDS ORDERED: MAG HYDROX/AL HYDROX/SIMETH 30 ML UDC PO PRN (21:00)
[2021-08-16] MEDS ORDERED: LORAZEPAM INJ 2 MG/ML VIAL IV PRN (21:00)
[2021-08-16] MEDS ORDERED: IV 1/2NS 1000 ML 1,000 ML IV PRN (21:00)
[2021-08-16] MEDS ORDERED: ONDANSETRON HCL/PF 4 MG/2 ML VIAL IVP PRN (21:00)
[2021-08-16] MEDS ORDERED: MAGNESIUM HYDROXIDE 30 ML UDC PO PRN (21:00)
[2021-08-16] MEDS ORDERED: Z GUARD REMEDY 2 OZ OINT TP PRN (21:00)
--- NOTE | 2021-08-16 21:11 | NUR ---
report given to seferino angeles transferred to 3w per acls protocol.
[2021-08-16] MEDS ORDERED: OLANZAPINE 5 MG TABLET PO PRN (21:30)
[2021-08-16] MEDS ORDERED: ERGOCALCIFEROL (VITAMIN D 2) 50,000 UNIT CAPSULE PO SCH (21:30)
--- NOTE | 2021-08-16 22:00 | NUR ---
Patient is being admitted to telemetry 3WEST. A&Ox1, responds to simple commands, but otherwise cannot comprehend conversation -per brother [facility] this is patient's baseline. VSS. campus monitor applied. All belongings present with patient. No non-verbal indicators of pain. Heart rate and rhythm regular. Lung sounds clear. Bowel sounds present x4, abdomen soft and non-distended. Only skin issue is scab to L thigh intact and no s/s of infection. Per brother/conservator pt. is major fall risk and has hx of several falls and osteoporosis can complicate. Also, brother/[facility] states pt. would like to receive flu vaccine. Soft diet at home. Patient oriented to call light. Seizure precautions in place -side rails padded. bed alarm on. bed in lowest position, semi fowlers, bed brakes on. all safety precautions in place.
--- NOTE | 2021-08-16 22:11 | NUR ---
Order received by On-call DRUM PULLER matos for 1:1 sitter due to hx of numerous recent falls/ high fall risk, pt does not know own limitations. Also, pt pulling at IV line and tele monitor. Patient is on seizure precautions and is not safe to be restrained.
[2021-08-16] MEDS: OLANZAPINE 2.5 MG TABLET PO SCH (22:25)
[2021-08-16] MEDS: ENOXAPARIN SODIUM 40 MG/0.4 ML DISP.SYRIN SQ SCH (22:26)
[2021-08-16] MEDS ORDERED: INFLUENZA VACCINE 2021-22 0.5 ML DISP.SYRIN IM ONE (23:00)
[2021-08-16] MEDS ORDERED: PNEUMOCOCCAL 23-VAL P-SAC VAC 0.5 ML VIAL SQ ONE (23:00)
[2021-08-17] VITALS: BP 185/87
[2021-08-17] MEDS ORDERED: Magnesium 1GM/D5W 100ML PREMIX 100 ML IV SCH
--- NOTE | 2021-08-17 00:01 | NUR ---
collected urine using clean catch. lab called to come pick up man.
[2021-08-17] MEDS: hydrALAZINE HCL IV 20 MG VIAL IV PRN (00:17)
--- NOTE | 2021-08-17 00:28 | NUR ---
PRN hydralazine given d/t SBP 185/87, repeated BP several times. will recheck in 45 mins.
[2021-08-17] MEDS: ACETAMINOPHEN 325 MG TABLET PO PRN ×2 (00:57→20:39)
[2021-08-17] MEDS: ZOLPIDEM TARTRATE 5 MG TABLET PO PRN (00:57)
--- NOTE | 2021-08-17 03:42 | NUR ---
PT C/O PAIN ON HER RIGHT LEG, TYLENOL 650MG PO Q6H PRN ADMINISTERED AT THIS TIME. WILL CONTINUE TO MONITOR.
[2021-08-17 04:00] VITALS: BP 137/89
--- NOTE | 2021-08-17 04:47 | NUR ---
new order for EKG in AM.
--- NOTE | 2021-08-17 06:08 | NUR ---
WINDOW/DISTRIBUTION CLERK CLOSING NOTES Patient has been confused overnight pulling at IV line, monitoring tech, and putting legs over bed. All safety measures in place. Frequent checks on patient and reorientation. No seizure activity overnight. SR on monitor approx. 76bpm. No non-verbal indicators of pain. NS at 75cc/hr infusing to R hand #20G IV. Urine collected via bedpan toileting -clear and yellow with no foul smell.
[2021-08-17] MEDS: PANTOPRAZOLE 40 MG TABLET.DR PO SCH (07:00)
[2021-08-17 07:22] LABS: BASOPHILS % (AUTO) 0.5 % (0.0-2.0); EOSINOPHILS % (AUTO) 1.9 % (0.0-6.0); HEMATOCRIT 35 % (33-45); HEMOGLOBIN 11.1 g/dL (11.5-14.8); LYMPHOCYTES # (AUTO) 2.5 K/uL (0.8-4.8); LYMPHOCYTES % (AUTO) 27.1 % (20.0-44.0); MEAN CORPUSCULAR HGB CONC 32 g/dl (31.0-36.0); MEAN CORPUSCULAR VOLUME 94 fL (82-100); MONOCYTES # (AUTO) 0.9 K/uL (0.1-1.30); MONOCYTES % (AUTO) 10.3 % (2.0-12.0); NEUTROPHILS # (AUTO) 5.5 K/uL (1.8-8.9); NEUTROPHILS % (AUTO) 60.2 % (43.0-81.0); PLATELET COUNT (AUTO) 284 K/uL (150-450); RED BLOOD CELL COUNT(AUTO) 3.74 MIL/uL (4.0-5.2); WHITE BLOOD COUNT (AUTO) 9.1 K/uL (4.3-11.0)
[2021-08-17 07:30] LABS: BILIRUBIN,URINE NEGATIVE (NEGATIVE); COLOR,URINE YELLOW (YELLOW); LEUKOCYTE ESTERASE ,URINE LARGE (NEGATIVE); NITRITE, URINE NEGATIVE (NEGATIVE); PH,URINE 7.5 (5.0-8.0); PROTEIN,URINE NEGATIVE (NEGATIVE); UGLUCOSE NEGATIVE (NEGATIVE); UROBILINOGEN,URINE 0.2 EU/dL (0.2)
[2021-08-17 07:47] LABS: BACTERIA,URINE Many /HPF (None Seen); SQUAMOUS EPITHELIAL CELL,UR Few /HPF (None Seen); WBC,URINE 51-80 /HPF (0-3)
[2021-08-17 07:49] LABS: CALCIUM OXALATE CRYSTALS,UR Few /HPF (None Seen)
--- NOTE | 2021-08-17 07:50 | NUR ---
TELE/RN OPENING NOTES RECEIVED PATIENT ON BED AWAKE ALERT AND ORIENTED X1. PATIENT IS ON ROOM AIR. PATIENT IN NO APPARENT RESPIRATORY DISTRESS NOTED. NO SIGN AND SYMPTOM NOTED AT THIS TIME. TELE MONITOR READING SINUS RHYTHM 74 BPM. PATIENT HAVE 1:1 SETTER ON BEDSIDE. WILL CONTINUE TO MONITOR.
[2021-08-17 07:51] LABS: CREATININE 0.7 mg/dL (0.6-1.3); PHOSPHORUS 2.3 mg/dL (2.5-4.9); POTASSIUM 3.3 mmol/L (3.5-5.1)
[2021-08-17 08:00] VITALS: BP 137/68
[2021-08-17 08:08] LABS: CALCIUM, SERUM 9.7 mg/dL (8.5-10.1); MAGNESIUM 1.9 mg/dL (1.8-2.4)
[2021-08-17] MEDS ORDERED: POTASSIUM PHOSPHATE MM 15 MMOL in IV NS 0.9% 250 ML IV SCH (09:00)
[2021-08-17] MEDS ORDERED: LEVETIRACETAM (250 MG) 250 MG TABLET PO SCH (09:00)
[2021-08-17] MEDS ORDERED: ERGOCALCIFEROL (VITAMIN D 2) 50,000 UNIT CAPSULE PO SCH (09:00)
[2021-08-17] MEDS: ASPIRIN 81 MG TAB.CHEW PO SCH (09:20)
[2021-08-17] MEDS: LEVETIRACETAM (250 MG) 250 MG TABLET PO SCH ×2 (09:20→21:17)
[2021-08-17] MEDS: CITALOPRAM HYDROBROMIDE 20 MG TABLET PO SCH (09:20)
[2021-08-17] MEDS: POTASSIUM PHOSPHATE MM 7.5 MMOL in IV NS 0.9% 100 ML IV SCH ×2 (09:21→13:21)
[2021-08-17] MEDS: TOPIRAMATE 100 MG TABLET PO SCH ×2 (09:28→21:16)
[2021-08-17 09:48] VITALS: BP 137/68
--- NOTE | 2021-08-17 10:08 | NUR ---
RN NOTES PATIENT IS SCREAMING AND VERBALIZING PAIN. DR. BILL WAS AWARE AND ORDER TO JUST MONITOR PATIENT NOW AND STRAIGHT CATHETER INSERTION FOR URINE COLLECTION.
[2021-08-17 12:00] VITALS: BP 136/60
[2021-08-17] MEDS ORDERED: POTASSIUM CHLORIDE 20 MEQ POWDER PACKET PO SCH (13:00)
[2021-08-17 16:00] VITALS: BP 149/88
--- NOTE | 2021-08-17 19:00 | NUR ---
MS RN OPENING NOTE RECEIVED PT IN BED, RESTING A/O X1, PT RESPONDS TO SIMPLE COMMANDS, PT STABLE ON ROOM AIR. NO S/S OF RESPIRATORY DISTRESS. NO C/O PAIN AT THIS TIME. IV ACCESS IN RIGHT HAND G #20. IV IS INTACT, PATENT, AND FLUSHING WELL. SAFETY MEASURES MAINTAINED AT ALL TIMES. BED IN LOWEST LOCKED POSITION, HOB ELEVATED, SIDE RAILS UP X2. CALL LIGHT AND TABLE WITHIN REACH. SITTER AT BEDSIDE. WILL CONTINUE WITH PLAN OF CARE.
--- NOTE | 2021-08-17 19:15 | NUR ---
RN CLOSING NOTES PATIENT IS ON BED AWAKE ALERT AND ORIENTED X4. PATIENT IS ON ROOM AIR. PATIENT IN NO APPARENT RESPIRATORY DISTRESS NOTED. NO COMPLAINED OF PAIN NOTED AT THIS TIME. IV ACCESS AT RIGHT HAND #20G PATENT AND INTACT. SEEN AND EXAMINED BY MD WITH ORDERS MADE AND CARRIED OUT. ALL DUE MEDICATIONS WAS GIVEN. SAFETY PRECAUTIONS WAS IN PLACED. SIDERAILS UP X2. WILL ENDORSED TO DIESEL SCOOP OPERATOR FOR TRISH.
--- NOTE | 2021-08-17 20:39 | NUR ---
PT C/O PAIN ON HER RIGHT LEG, TYLENOL 650MG PO Q6H PRN ADMINISTERED AT THIS TIME. WILL CONTINUE TO MONITOR.
[2021-08-17] MEDS: OLANZAPINE 2.5 MG TABLET PO SCH (21:17)
[2021-08-17] MEDS ORDERED: LEVE250T2 PO (21:32)
[2021-08-17] MEDS: ENOXAPARIN SODIUM 40 MG/0.4 ML DISP.SYRIN SQ SCH (22:10)
[2021-08-18] MEDS: ZOLPIDEM TARTRATE 5 MG TABLET PO PRN (00:19)
--- NOTE | 2021-08-18 00:19 | NUR ---
AMBIEN 5MG PO HS FOR SLEEP ADMINISTERED AT THIS TIME PER ORDER
[2021-08-18 01:58] VITALS: BP 200/147
[2021-08-18] MEDS: hydrALAZINE HCL IV 20 MG VIAL IV PRN (01:58)
--- NOTE | 2021-08-18 01:58 | NUR ---
BP 200/147, ADMINISTERED HYDRALAZINE 0.5MG AT THIS TIME FOR BP >170 PER ORDER . WILL CONTINUE TO MONITOR Addendum: 08/18/21 at 0801 by PILI MESSER RN BP 200/147, ADMINISTERED HYDRALAZINE 0.5MG IV Q 6H PRN FOR SBP >170 AT THIS TIME FOR BP >170 PER ORDER . WILL CONTINUE TO MONITOR
--- NOTE | 2021-08-18 02:30 | NUR ---
RECHECKED BP, 136/77, WILL CONTINUE TO MONITOR
[2021-08-18] MEDS: ACETAMINOPHEN 325 MG TABLET PO PRN (03:42)
--- NOTE | 2021-08-18 03:42 | NUR ---
PER NURSING JUDGEMENT, TYLENOL 650MG PO Q6H PRN ADMINISTERED AT THIS TIME. WILL CONTINUE TO MONITOR.
--- NOTE | 2021-08-18 06:30 | NUR ---
MS RN CLOSING NOTE PT AWAKE AND RESTING IN BED, STABLE ON ROOM AIR. PT REMAINED STABLE THROUGHOUT SHIFT. ALL NEEDS, MEDICATIONS, AND CARE ADMINISTERED ANTICIPATED PER ORDER; PAIN CONTROL ADMINISTERED PER ORDER. SAFETY PRECAUTIONS IN PLACE AND MAINTAINED AT ALL TIMES. BED IN LOWEST, LOCKED POSITION, HOB ELEVATED, SIDE RAILS UP X2. CALL LIGHT AND TABLE WITHIN REACH. WILL ENDORSE TO AM SHIFT NURSE FOR TRISH.
[2021-08-18 06:47] LABS: BASOPHILS # (AUTO) 0.1 K/uL (0.0-0.2); BASOPHILS % (AUTO) 0.6 % (0.0-2.0); EOSINOPHILS % (AUTO) 1.6 % (0.0-6.0); HEMATOCRIT 33 % (33-45); HEMOGLOBIN 10.9 g/dL (11.5-14.8); LYMPHOCYTES # (AUTO) 2.4 K/uL (0.8-4.8); LYMPHOCYTES % (AUTO) 25.4 % (20.0-44.0); MEAN CORPUSCULAR HGB CONC 33 g/dl (31.0-36.0); MEAN CORPUSCULAR VOLUME 92 fL (82-100); MONOCYTES # (AUTO) 0.8 K/uL (0.1-1.30); MONOCYTES % (AUTO) 8.8 % (2.0-12.0); NEUTROPHILS # (AUTO) 5.9 K/uL (1.8-8.9); NEUTROPHILS % (AUTO) 63.6 % (43.0-81.0); PLATELET COUNT (AUTO) 324 K/uL (150-450); RED BLOOD CELL COUNT(AUTO) 3.62 MIL/uL (4.0-5.2); WHITE BLOOD COUNT (AUTO) 9.3 K/uL (4.3-11.0)
[2021-08-18 07:18] LABS: CALCIUM, SERUM 9.7 mg/dL (8.5-10.1); CREATININE 0.8 mg/dL (0.6-1.3); POTASSIUM 3.7 mmol/L (3.5-5.1)
--- NOTE | 2021-08-18 07:39 | NUR ---
RN OPENING NOTES Patient seen comfortably lying in bed, no SOB, no apparent distress noted, breathing even and unlabored, denies any pain or discomfort at this time. Call light left within reach, safety precautions in place, brakes locked, side rails up X 2, will monitor closely for any changes.
--- NOTE | 2021-08-18 07:39 | NUR ---
RN OPENING NOTES Patient seen comfortably lying in bed, no SOB, no apparent distress noted, breathing even and unlabored, denies any pain or discomfort at this time, no grimacing. Call light left within reach, safety precautions in place, brakes locked, side rails up X 2, will monitor closely for any changes.
--- NOTE | 2021-08-18 07:48 | NUR ---
Received a call from laboratory, spoke to Kassie. Patient has Magnesium level of 1.2. Result relayed to MD with new orders for Magnesium 1g IV X 4doses, orders noted and carried out. No apparent distress with patient right now, will monitor closely for any changes.
[2021-08-18 07:50] LABS: MAGNESIUM 1.2 mg/dL (1.8-2.4)
[2021-08-18] MEDS ORDERED: Magnesium 1GM/D5W 100ML PREMIX PIGGYBACK IV SCH (08:30)
[2021-08-18] MEDS: Magnesium 1GM/D5W 100ML PREMIX 100 ML IV SCH ×4 (08:31→11:30)
[2021-08-18] MEDS: ASPIRIN 81 MG TAB.CHEW PO SCH (08:31)
[2021-08-18] MEDS: TOPIRAMATE 100 MG TABLET PO SCH (08:32)
[2021-08-18] MEDS: CITALOPRAM HYDROBROMIDE 20 MG TABLET PO SCH (08:32)
[2021-08-18] MEDS: LEVETIRACETAM (250 MG) 250 MG TABLET PO SCH (08:32)
[2021-08-18] MEDS: PANTOPRAZOLE 40 MG TABLET.DR PO SCH (08:32)
--- NOTE | 2021-08-18 12:15 | NUR ---
Patient has an order for Magnesium 1g X 4doses IV, per family do not give her everything just give her 2g total, explained risks and benefits to family, still refused. Patient's Magnesium level this morning was 1.2, made aware of the situation, no new orders at this time.
--- NOTE | 2021-08-18 16:35 | NUR ---
Patient to be discharged home today, no apparent distress noted, no grimacing. Discharge paperworks and inventory list signed by 2 RNs, patient unable to sign, all belongings taken. Skin intact, warm to touch, no pallor or cyanosis noted. Photos of skin taken prior to discharge and is filed in the chart. Peripheral IV removed and covered with dry dressing, no bleeding noted. Name wristband removed prior to discharge. Patient left unit at 1635, stable condition, surgical facial mask provided to patient, exit care folder with discharge paperworks given to patient. SECURITY INFRASTRUCTURE ENGINEER assisted patient via wheelchair going to the hospital lobby.
== END 2021-08-18 16:30 | disposition home or self-care (01) | DRG 53 ==
LOC: ER 17:04 → TELE 20:35
PROVIDERS: ADMIT Nurse Practitioner Family; ATTEND Family Medicine
DX: G40.909 Epilepsy, unspecified, not intractable, without status epilepticus (principal); N17.0 Acute kidney failure with tubular necrosis; E44.0 Moderate protein-calorie malnutrition; E83.42 Hypomagnesemia; E83.52 Hypercalcemia; E83.39 Other disorders of phosphorus metabolism; E87.6 Hypokalemia; F84.0 Autistic disorder; Z96.60 Presence of unspecified orthopedic joint implant; Z79.82 Long term (current) use of aspirin; Z79.899 Other long term (current) drug therapy; E86.0 Dehydration; F41.9 Anxiety disorder, unspecified; F32.A Depression, unspecified; F29 Unspecified psychosis not due to a substance or known physiological condition
CPT/HCPCS: 36415; 70450-TC; 71045-TC; 80048-TC; 80076-TC; 80164-TC; 80184; 80185-TC; 81001; 83605-TC; 83735-TC; 84100-TC; 85025-TC; 85730-TC; 87040-TC; 87081-TC; 87086-TC; C9803; G0378; G0480; J0360; J1650; J3475; J3490; J7030; J7040